=== PATIENT | female | born 1955 | race Caucasian/White ===

== ENCOUNTER → 2016-11-01 | Outpatient (CLI) | payer BC ==
[~2016-11-01] MED LIST: NAPR-201; ONDA4TAB10 SL; OXYC-57; PROM12.57 PO
--- NOTE | 2016-11-03 08:26 | MAMMOGRAPHY REPORT ---
BILATERAL DIGITAL SCREENING MAMMOGRAM TOMOSYNTHESIS WITH CAD: 11/01/2016 CLINICAL HISTORY: Routine screening. TECHNIQUE: Breast tomosynthesis in addition to standard 2D mammography was performed. Current study was also evaluated with a Computer Aided Detection (CAD) system. COMPARISON: Comparison is made to exam dated: 10/12/2007. BREAST COMPOSITION: The tissue of both breasts is extremely dense, which lowers the sensitivity of mammography. FINDINGS: There is an asymmetry in the lateral right breast for which additional targeted ultrasoun d and possible additional mammographic views are recommended. This is thought to project along the posterior nipple line on the MLO view. Additionally, there are possible clusters of microcalcificat ions in the upper outer quadrant of each breast, for which additional spot magnification views are r ecommended. No other suspicious mass, architectural distortion or cluster of microcalcifications is seen. IMPRESSION: ACR BI-RADS CATEGORY 0: INCOMPLETE EVALUATION: NEED ADDITIONAL IMAGING EVALUATION The asymmetry in the lateral right breast and possible bilateral microcalcifications need additional imaging evaluation. The patient will be called to schedule an appointment. Approximately 10% of breast cancers are not detected with mammography. A negative mammographic repor t should not delay biopsy if a clinically suggestive mass is present. Mi Sam M.D. ay/:11/02/2016 18:28:02 School Examiner: Long BARRON)(M), [facility] letter sent: Addl Imaging 0 BI-RADS Code: ACR BI-RADS Category 0: Incomplete Evaluation: Need Additional Imaging Evaluation
== END | disposition home or self-care (01) ==
LOC: C.MAMM 13:46
PROVIDERS: ATTEND Family Medicine
DX: Z12.31 Encounter for screening mammogram for malignant neoplasm of breast (principal); R92.8 Other abnormal and inconclusive findings on diagnostic imaging of breast

== ENCOUNTER → 2016-11-15 | Outpatient (CLI) | payer BC | END | disposition home or self-care (01) | LOC: C.MAMM 13:14 | PROVIDERS: ATTEND Family Medicine | DX: R63.4 Abnormal weight loss (principal); N95.1 Menopausal and female climacteric states; M85.851 Other specified disorders of bone density and structure, right thigh; M85.852 Other specified disorders of bone density and structure, left thigh; M85.88 Other specified disorders of bone density and structure, other site ==

== ENCOUNTER → 2016-11-17 | Outpatient (CLI) | payer BC ==
--- NOTE | 2016-11-17 14:54 | MAMMOGRAPHY REPORT ---
BILATERAL DIGITAL DIAGNOSTIC MAMMOGRAM AND TARGETED RIGHT ULTRASOUND: 11/17/2016 CLINICAL HISTORY: Callback from screening mammogram for bilateral calcifications and right breast as ymmetry. TECHNIQUE: Spot magnification bilateral CC and ML views were obtained. COMPARISON: Comparison is made to exams dated: 11/01/2016 mammogram - [facility] an d 10/12/2007. BREAST COMPOSITION: The tissue of both breasts is extremely dense, which lowers the sensitivity of mammography. FINDINGS: The patient reports a family history of breast cancer in her mother. The previously seen asymmetry in the right lateral breast on the cc view is less prominent on the spot magnification vie w, without a discrete mass or other suspicious finding noted on the additional views. Spot magnific ation views of the right breast demonstrate a 6 mm group of faint punctate calcifications in the rig ht upper outer quadrant, as well as a few other faint scattered punctate calcifications noted. Spot magnification views of the left breast demonstrate a small 3 mm cluster of faint punctate calcifica tions in the left upper outer quadrant. The calcifications were not clearly present on the 2007 exa m, however, it is difficult to make an accurate comparison due to differences in technique (the prio r mammogram was a screen film mammogram). The calcifications are probably benign and a short interv al follow-up is recommended to confirm stability. Targeted ultrasound was performed of the right lateral breast in the region of the mammographic asym metry. No suspicious masses or other suspicious sonographic abnormalities are evident. 2 adjacent anechoic circumscribed masses are seen within the right breast at 9:00, 2 cm from the nipple, one me asuring 4 x 5 mm and the other measuring 3 x 4 mm, consistent with benign cysts. Another anechoic b enign simple cyst measuring 5 mm is seen within the right breast at 9:00 periareolar region. IMPRESSION: ACR-BI-RADS CATEGORY 3: PROBABLY BENIGN, TARGETED ULTRASOUND ACR-BI-RADS CATEGORY 3: [place] OBABLY BENIGN 1. Grouped faint punctate calcifications in bilateral upper outer quadrants are probably benign. R ecommend follow-up diagnostic mammograms in 6 months to confirm stability on spot magnification view s. 2. Asymmetry seen within the right lateral breast is less prominent on the additional views, withou t corresponding suspicious sonographic abnormality evident. The asymmetry is probably benign and li evonne represents normal fibroglandular tissue. Recommend follow-up diagnostic tomosynthesis mammogra ms in 6 months to confirm stability. 3. Given the extremely dense breast parenchyma mammographically and given the family history of ela ast cancer, the patient may qualify for annual screening breast MRI in addition to mammography if he r lifetime risk is greater than 20-25%. The patient has been verbally notified of the results. Approximately 10% of breast cancers are not detected with mammography. A negative mammographic repor t should not delay biopsy if a clinically suggestive mass is present. Carri Meyer M.D. ah/:11/17/2016 12:17:33 Needle Molder: Shahida Crespo, [facility] letter sent: Follow Up Recommended 3 BI-RADS Code: ACR-BI-RADS Category 3: Probably Benign Ultrasound BI-RADS: ACR-BI-RADS Category 3: P robably Benign
== END | disposition home or self-care (01) ==
LOC: C.MAMM 09:06
PROVIDERS: ATTEND Family Medicine
DX: R92.0 Mammographic microcalcification found on diagnostic imaging of breast (principal); N64.89 Other specified disorders of breast

== ENCOUNTER 2017-04-06 16:50 | Emergency (ER) | payer BC ==
[~2017-04-06] VITALS: Ht 172.7 cm; Wt 58.6 kg
[~2017-04-06 16:50] MED LIST changes: -ONDA4TAB10 SL
[2017-04-06 16:58] VITALS: TEMP 36.4
[2017-04-06] MEDS ORDERED: SODIUM CHLORIDE 0.9% 1000ML 1,000 ML IV STA (17:26)
[2017-04-06] MEDS ORDERED: ONDANSETRON INJ 2 MG/ML 2 ML VIAL IV STA (17:29)
--- NOTE | 2017-04-06 17:29 | EMERGENCY ROOM VISIT NOTE ---
History Report prepared by Mustapha: Shey Centeno Under the Supervision of: Dr. Giovanni Bentley M.D. First contact with patient: 17:18 Chief Complaint: VOMITING Stated Complaint: VOMITING, DEHYDRATED, MEMORY LOSS Nursing Triage Summary: Patient reports n/v since 1500 today denies any diarrhea. Patient also denies any pain. States she took a five hour energy drink prior to the vomiting and per patient was confused. History of Present Illness The patient is a 61 year old female who presents to the Emergency Room with complaints of persistent vomiting starting 1500 today. The patient had taken caffeine tablets and a 5 Hour Energy in order to make a long drive to [place] today. 30 minutes later she called her and was confused. Her states that she could not remember what she had done earlier in the day. Around 1 hour later, she started becoming nauseous and vomiting. She has vomited 4 times. She is currently still nauseous. She denies having any abdominal pain. Her states that she continues to ask the same questions repeatedly. Source of History: patient, spouse/significant other Onset: 1500 today Position: other (global) Quality: other (vomiting) Timing: other (persistent) Associated Symptoms: + nausea, No abdominal pain Note: Pt is confused, memory loss. Review of Systems See HPI for pertinent positives & negatives. A total of 10 systems reviewed and were otherwise negative. Past Medical & Surgical Medical Problems: (1) No significant medical problems Family History No pertinent family history stated. Social History Smoking Status: Never Smoker Marital Status: Current/Historical Medications Scheduled Ondasetron Odt (Zofran Odt), 4 MG SL Q6H Allergies Coded Allergies: Quinine (Unverified Allergy, Mild, 04/06/17) Physical Exam Vital Signs Date Time Temp Pulse Resp B/P (MAP) Pulse Ox O2 Delivery O2 Flow Rate FiO2 04/06/17 20:07 68 16 101/71 99 04/06/17 19:21 67 112/68 100 Room Air 04/06/17 18:37 63 04/06/17 17:42 64 116/78 65 112/79 62 102/80 04/06/17 17:40 99 Room Air 04/06/17 16:58 36.4 69 20 100 Room Air Physical Exam GENERAL: Patient is a healthy-appearing well-nourished female HEAD: Normocephalic atraumatic EYES: Ocular movements intact pupils equal and react to light OROPHARYNX mucous membranes are moist no exudates present no erythema or edema present NECK: Supple no nuchal rigidity CHEST: Good equal expansion LUNGS: Clear and equal to auscultation CARDIAC: Normal S1 and S2 ABDOMEN: Soft nontender no guarding BACK: No CVA tenderness EXTREMITIES: No pain upon palpation normal muscle strength in all groups no clubbing cyanosis or edema NEURO: Patient is following commands and answering questions appropriately. Alert and oriented x3 Cranial Nerves 2-12 grossly intact Medical Decision & Procedures ER Provider Diagnostic Interpretation: X-ray results as stated below per interpretation by me and the radiologist. Radiology results as stated below per my review and radiologist interpretation: CHEST ONE VIEW PORTABLE HISTORY: 61 years-old Female Pt c/o AMS acute altered mental status with vomiting and dehydration COMPARISON: Chest radiograph 10/20/2009 TECHNIQUE: Portable upright AP view of the chest FINDINGS: 1.4 cm nodular density of the left lung base suggest nipple shadow. There is no pneumothorax, pleural effusion, focal airspace consolidation or overt pulmonary edema. Cardiac silhouette is within normal limits. There is atherosclerosis of the aorta. The bones appear to be grossly intact. IMPRESSION: No acute cardiopulmonary process. The above report was generated using voice recognition software. It may contain grammatical, syntax or spelling errors. Electronically signed by: Robinson Mauro M.D. 04/06/2017 6:31 PM Dictated Date/Time: 04/06/2017 6:30 PM HEAD WITHOUT CONTRAST (CT) CLINICAL HISTORY: 61 years-old Female with Pt c/o memory loss. Acute memory loss with altered mental status. TECHNIQUE: Multiple axial CT images of the head were obtained without contrast. A dose lowering technique was utilized adhering to the principles of ALARA. CT DOSE: 537.48 mGy.cm COMPARISON: None. FINDINGS: No acute intracranial hemorrhage, midline shift, mass, large territorial ischemia or abnormal extra-axial collection. The calvarium is intact. The paranasal sinuses, mastoid air cells, and middle ear cavities are clear. IMPRESSION: No acute intracranial abnormality. The above report was generated using voice recognition software. It may contain grammatical, syntax or spelling errors. Electronically signed by: Robinson Mauro M.D. 04/06/2017 6:33 PM Dictated Date/Time: 04/06/2017 6:31 PM Laboratory Results 04/06/17 17:15 Red Blood Count 4.94, Mean Corpuscular Volume 93.1, Mean Corpuscular Hemoglobin 30.4, Mean Corpuscular Hemoglobin Concent 32.6, Mean Platelet Volume 10.6, Neutrophils (%) (Auto) 80.5, Lymphocytes (%) (Auto) 16.4, Monocytes (%) (Auto) 1.9, Eosinophils (%) (Auto) 0.2, Basophils (%) (Auto) 0.8, Neutrophils # (Auto) 4.78, Lymphocytes # (Auto) 0.97, Monocytes # (Auto) 0.11, Eosinophils # (Auto) 0.01, Basophils # (Auto) 0.05 04/06/17 17:15 Test 04/06/17 17:15 04/06/17 19:45 White Blood Count 5.93 K/uL (4.8-10.8) Red Blood Count 4.94 M/uL (4.2-5.4) Hemoglobin 15.0 g/dL (12.0-16.0) Hematocrit 46.0 % (37-47) Mean Corpuscular Volume 93.1 fL (80-100) Mean Corpuscular Hemoglobin 30.4 pg (25-34) Mean Corpuscular Hemoglobin Concent 32.6 g/dl (32-36) Platelet Count 199 K/uL (130-400) Mean Platelet Volume 10.6 fL (7.4-10.4) Neutrophils (%) (Auto) 80.5 % Lymphocytes (%) (Auto) 16.4 % Monocytes (%) (Auto) 1.9 % Eosinophils (%) (Auto) 0.2 % Basophils (%) (Auto) 0.8 % Neutrophils # (Auto) 4.78 K/uL (1.4-6.5) Lymphocytes # (Auto) 0.97 K/uL (1.2-3.4) Monocytes # (Auto) 0.11 K/uL (0.11-0.59) Eosinophils # (Auto) 0.01 K/uL (0-0.5) Basophils # (Auto) 0.05 K/uL (0-0.2) RDW Standard Deviation 41.3 fL (36.4-46.3) RDW Coefficient of Variation 12.2 % (11.5-14.5) Immature Granulocyte % (Auto) 0.2 % Immature Granulocyte # (Auto) 0.01 K/uL (0.00-0.02) Anion Gap 13.0 mmol/L (3-11) Est Creatinine Clear Calc Drug Dose 62.9 ml/min Estimated GFR () 82.8 Estimated GFR (Non- 71.4 BUN/Creatinine Ratio 19.9 (10-20) Calcium Level 8.7 mg/dl (8.5-10.1) Total Bilirubin 0.6 mg/dl (0.2-1) Direct Bilirubin 0.2 mg/dl (0-0.2) Aspartate Amino Transf (AST/SGOT) 32 U/L (15-37) Alanine Aminotransferase (ALT/SGPT) 33 U/L (12-78) Alkaline Phosphatase 97 U/L (45-117) Total Creatine Kinase 104 U/L (26-192) Creatine Kinase MB 2.1 ng/ml (0.5-3.6) Creatine Kinase MB Ratio 2.0 (0-3.0) Troponin I < 0.015 ng/ml (0-0.045) Total Protein 7.5 gm/dl (6.4-8.2) Albumin 4.0 gm/dl (3.4-5.0) Thyroid Stimulating Hormone (TSH) 2.620 uIu/ml (0.300-4.500) Urine Color YELLOW Urine Appearance TURBID (CLEAR) Urine pH >= 9.0 (4.5-7.5) Urine Specific [place] 1.017 (1.000-1.030) Urine Protein NEG (NEG) Urine Glucose (UA) NEG (NEG) Urine Ketones 1+ (NEG) Urine Occult Blood NEG (NEG) Urine Nitrite NEG (NEG) Urine Bilirubin NEG (NEG) Urine Urobilinogen NEG (NEG) Urine Leukocyte Esterase NEG (NEG) Urine WBC (Auto) 1-5 /hpf (0-5) Urine RBC (Auto) 0-4 /hpf (0-4) Urine Hyaline Casts (Auto) 0 /lpf (0-5) Urine Epithelial Cells (Auto) 5-10 /lpf (0-5) Urine Bacteria (Auto) NEG (NEG) Labs reviewed by ED physician. Medications Administered Medications (Trade) Dose Ordered Sig/Emerson Route Start Time Stop Time Status Last Admin Dose Admin Sodium Chloride 1,000 ml @ 999 mls/hr Q1H1M STAT IV 04/06/17 17:26 04/06/17 18:26 DC 04/06/17 17:38 999 MLS/HR Ondansetron HCl (Zofran Inj) 4 mg NOW STAT IV 04/06/17 17:29 04/06/17 17:31 DC 04/06/17 17:37 4 MG Potassium Chloride (Tanesha Ciel Elix) 60 meq NOW STAT PO 04/06/17 18:00 04/06/17 18:01 DC 04/06/17 18:53 60 MEQ Ondansetron HCl (ZOFRAN ODT 4MG Home Pack) 1 homepack UD ONCE PO 04/06/17 19:45 04/06/17 19:46 DC 04/06/17 20:01 1 HOMEPACK ECG Indication: altered mental status Rate (beats per minute): 56 Rhythm: sinus bradycardia Findings: no acute ischemic change, no ectopy ED Course 172: Past medical records reviewed. The patient was evaluated in room B4B. A complete history and physical examination was performed. 1726: NSS 1000 ml @ 999 mls/hr IV. 1729: Zofran Inj 4 mg IV. 1800: Potassium Chloride 60 meq PO, Promethazine HCl 25 mg/Sodium Chloride 51 ml @ 204 mls/hr IV. 1935: I reevaluated the patient. She is resting comfortably. I discussed my findings with her and her . I strongly recommended that she stay for a stroke work up. She is refusing the stroke work up and states she would like to go home. She will be going home. 1944: Ondansetron HCl 1 homepack PO. Medical Decision Differential diagnosis: Etiologies such as metabolic, infection, hypo/hyperglycemia, electrolyte abnormalities, cardiac sources, intracerebral event, toxicologic, neurologic, as well as others were entertained. This is a 61-year-old female who presents emergency department complaining of gastroenteritis-like symptoms after taking caffeine pills in a 5 hour energy drink. Upon arrival to the emergency department there is concern that the patient is acutely confused and that she does not remember elements of today. serial abdominal examinations were performed on the patient in the emergency department and at no time did the patient exhibit a surgical abdomen. In addition the patient was sent for a CAT scan of the head which did not show any acute process. Based on these findings I was still concerned that the patient may have had a TIA based on the fact that she cannot remember elements from today and based on that I highly recommended that the patient be admitted to the hospital however both patient and her are refusing. She seems more alert and oriented at this point. I did recommend Zofran for vomiting at home. Medication Reconcilliation Current Medication List: was personally reviewed by me Blood Pressure Screening Patient's blood pressure: Normal blood pressure Blood pressure disposition: Did not require urgent referral Impression Primary Impression: Vomiting Scribe Attestation The scribe's documentation has been prepared under my direction and personally reviewed by me in its entirety. I confirm that the note above accurately reflects all work, treatment, procedures, and medical decision making performed by me. Departure Information Dispostion Other Prescriptions Ondasetron Odt (ZOFRAN ODT) 4 Mg Tab 4 MG SL Q6H for Nausea, #6 TAB Prov: Giovanni Bentley MD 04/06/17 Referrals Alta Bennett,D.OShannon (PCP) Forms HOME CARE DOCUMENTATION FORM, IMPORTANT VISIT INFORMATION Patient Instructions ED Diet Vomiting Diarrhea, My [facility], Nausea Vomit Control, Vomiting - [facility] Additional Instructions Need follow up with DR Bennett's office You have been examined and treated today on an emergency basis only. This is not a substitute for, or an effort to provide, complete comprehensive medical care. It is impossible to recognize and treat all injuries or illnesses in a single emergency department visit. It is therefore important that you follow up closely with Dr Bennett. Call as soon as possible for an appointment. Thank you for your time and consideration. I look forward to speaking with you again soon. Please don't hesitate to call us if you have any questions. Problem Qualifiers Primary Impression: Vomiting Vomiting type: unspecified Vomiting Intractability: unspecified Nausea presence: unspecified Qualified Codes: R11.10 - Vomiting, unspecified
[2017-04-06 17:36] LABS: BASO % 0.8 %; BASO ABS # 0.05 K/uL (0-0.2); COMPLETE YES; EOS % 0.2 %; IG% 0.2 %; LYMPH % 16.4 %; LYMPH ABS # 0.97 K/uL (1.2-3.4); MEAN CELL VOLUME 93.1 fL (80-100); MEAN CORPUSCULAR HEMOGLOBIN 30.4 pg (25-34); MEAN CORPUSCULAR HGB CONC 32.6 g/dl (32-36); MEAN PLATELET VOLUME 10.6 fL (7.4-10.4); MONO % 1.9 %; NEUT % 80.5 %; PLATELET COUNT 199 K/uL (130-400); RED BLOOD COUNT 4.94 M/uL (4.2-5.4); WHITE BLOOD COUNT 5.93 K/uL (4.8-10.8)
[2017-04-06 17:40] VITALS: O2SAT 99; Ht 172.7 cm; Wt 58.6 kg
[2017-04-06 17:55] LABS: ALT/SGPT 33 U/L (12-78); AST/SGOT 32 U/L (15-37); BLOOD UREA NITROGEN 18 mg/dl (7-18); BUN/CREATININE RATIO 19.9 (10-20); CALCIUM 8.7 mg/dl (8.5-10.1); CARBON DIOXIDE 22 mmol/L (21-32); CHLORIDE 106 mmol/L (98-107); CREATININE 0.88 mg/dl (0.60-1.20); GLUCOSE 150 mg/dl (70-99); POTASSIUM 3.1 mmol/L (3.5-5.1); SODIUM 141 mmol/L (136-145)
[2017-04-06] MEDS ORDERED: PROMETHAZINE HCL INJ 25 MG in SODIUM CHLORIDE 0.9% 50ML 50 ML IV STA (18:00)
[2017-04-06] MEDS ORDERED: POTASSIUM CHLORIDE 20 MEQ/15 ML UDC PO STA (18:00)
[2017-04-06 18:07] LABS: ALKALINE PHOSPHATASE 97 U/L (45-117)
--- NOTE | 2017-04-06 18:32 | DIAGNOSTIC IMAGING REPORT ---
CHEST ONE VIEW PORTABLE HISTORY: 61 years-old Female Pt c/o AMS acute altered mental status with vomiting and dehydration COMPARISON: Chest radiograph 10/20/2009 TECHNIQUE: Portable upright AP view of the chest FINDINGS: 1.4 cm nodular density of the left lung base suggest nipple shadow. There is no pneumothorax, pleural effusion, focal airspace consolidation or overt pulmonary edema. Cardiac silhouette is within normal limits. There is atherosclerosis of the aorta. The bones appear to be grossly intact. IMPRESSION: No acute cardiopulmonary process. The above report was generated using voice recognition software. It may contain grammatical, syntax or spelling errors. Electronically signed by: Robinson Mauro M.D. 04/06/2017 6:31 PM Dictated Date/Time: 04/06/2017 6:30 PM
--- NOTE | 2017-04-06 18:34 | DIAGNOSTIC IMAGING REPORT ---
HEAD WITHOUT CONTRAST (CT) CLINICAL HISTORY: 61 years-old Female with Pt c/o memory loss. Acute memory loss with altered mental status. TECHNIQUE: Multiple axial CT images of the head were obtained without contrast. A dose lowering technique was utilized adhering to the principles of ALARA. CT DOSE: 537.48 mGy.cm COMPARISON: None. FINDINGS: No acute intracranial hemorrhage, midline shift, mass, large territorial ischemia or abnormal extra-axial collection. The calvarium is intact. The paranasal sinuses, mastoid air cells, and middle ear cavities are clear. IMPRESSION: No acute intracranial abnormality. The above report was generated using voice recognition software. It may contain grammatical, syntax or spelling errors. Electronically signed by: Robinson Mauro M.D. 04/06/2017 6:33 PM Dictated Date/Time: 04/06/2017 6:31 PM
[2017-04-06] MEDS ORDERED: BENZTROPINE MESYLATE 1 MG/ML 2 ML AMP IM STA (18:45)
[2017-04-06] MEDS ORDERED: ONDA4TAB10 SL (19:43)
[2017-04-06] MEDS ORDERED: ONDANSETRON HOME PACK 4MG OD TAB PO ONE (19:45)
[2017-04-06 19:57] LABS: URINE APPEARANCE TURBID (CLEAR); URINE BILIRUBIN NEG (NEG); URINE COLOR YELLOW; URINE NITRITE NEG (NEG); URINE PH >= 9.0 (4.5-7.5); URINE SPECIFIC GRAVITY 1.017 (1.000-1.030); UROBILINOGEN NEG (NEG)
[2017-04-06 20:04] LABS: MANUAL MICROSCOPIC REQUIRED? NO; REVIEW REQ? NO
[2017-04-06 20:07] VITALS: BP 101/71; PULSE 68; O2SAT 99
== END 2017-04-06 20:08 | disposition home or self-care (01) ==
LOC: C.EDB 16:52
DX: R11.2 Nausea with vomiting, unspecified (principal)

== ENCOUNTER → 2017-05-17 | Outpatient (CLI) | payer BC ==
[~2017-05-17] MED LIST changes: -NAPR-201; +ONDA4TAB10 SL; -OXYC-57; -PROM12.57 PO
--- NOTE | 2017-05-17 15:11 | MAMMOGRAPHY REPORT ---
BILATERAL DIGITAL DIAGNOSTIC MAMMOGRAM TOMOSYNTHESIS WITH CAD: 05/17/2017 CLINICAL HISTORY: 61-year-old woman presents for follow-up in both breasts for bilateral microcalcifi cations and right lateral asymmetry. TECHNIQUE: Bilateral CC and MLO 2-D and tomosynthesis images, spot magnification CC and ML views of each breast were obtained. Current study was also evaluated with a Computer Aided Detection (CAD) sy stem. COMPARISON: Comparison is made to exams dated: 11/17/2016 ultrasound, 11/01/2016 mammogram - [facility], 10/12/2007, and 11/17/2016 mammogram - [facility]. BREAST COMPOSITION: There are scattered areas of fibroglandular density in both breasts. FINDINGS: The asymmetry previously observed in the lateral posterior right breast on the CC view is n o longer seen on the 2-D view and there is no corresponding or suspicious abnormality on the tomosynt hesis images in that area. This finding most likely represented normal overlapping fibroglandular ti ssue and is considered benign. No new suspicious masses, areas of architectural distortion or asymme tries are seen in the breast. Microcalcifications are again seen in each upper outer quadrant, for w hich evaluation of the spot magnification views was performed. Spot magnification views of the right upper outer quadrant demonstrate a very faint loose grouping of punctate microcalcifications which appear similar to this prior spot magnification views obtained on 11/17/2016. Views of the left upper outer quadrant demonstrate a small, 3.5 mm grouping of punctate microcalcifications in the upper outer posterior breast, which appears similar to the prior screen f ilm mammograms from 10/12/2007, based on MLO comparison and these are most likely benign. Given the slight increased conspicuity of both right and left microcalcifications, another short interval follo w-up bilateral diagnostic mammogram including spot magnification views is recommended in 6 months. IMPRESSION: ACR-BI-RADS CATEGORY 3: PROBABLY BENIGN 1. A right lateral posterior asymmetry is no longer seen on the 2-D or tomosynthesis views, confirmi ng benignity. This finding most likely represented normal overlapping fibroglandular tissue. 2. Very faint groupings of punctate microcalcifications are again noted in each upper outer quadrant , which are stable compared to prior spot magnification views obtained on 11/17/2016 and the left ela ast microcalcifications have likely been present dating back to 2007. Another short interval follow- up bilateral diagnostic mammogram including spot magnification views is recommended in 6 months to en sure longer stability. These results and recommendations were discussed with the patient at the time of the exam. Approximately 10% of breast cancers are not detected with mammography. A negative mammographic report should not delay biopsy if a clinically suggestive mass is present. Mi Sam M.D. ay/:05/17/2017 14:43:34 Drop Man: Cynthia SUE(Nigel)(Major), [facility] letter sent: Follow Up Recommended 3 BI-RADS Code: ACR-BI-RADS Category 3: Probably Benign
== END | disposition home or self-care (01) ==
LOC: C.MAMM 08:36
PROVIDERS: ATTEND Family Medicine
DX: R92.0 Mammographic microcalcification found on diagnostic imaging of breast (principal); N64.89 Other specified disorders of breast

== ENCOUNTER → 2017-11-16 | Outpatient (CLI) | payer OTHER ==
--- NOTE | 2017-11-16 15:25 | MAMMOGRAPHY REPORT ---
BILATERAL DIGITAL DIAGNOSTIC MAMMOGRAM TOMOSYNTHESIS WITH CAD: 11/16/2017 CLINICAL HISTORY: Short interval follow-up of bilateral breast calcifications. The patient reports n o new lumps or other complaints. TECHNIQUE: Breast tomosynthesis in addition to standard 2D mammography was performed. Current study was also evaluated with a Computer Aided Detection (CAD) system. Bilateral CC and MLO 2D and tomosyn thesis images and spot magnification bilateral CC and ML views were obtained. COMPARISON: Comparison is made to exams dated: 11/17/2016 ultrasound, 05/17/2017 mammogram, 11/17/2016 mammogram, 11/01/2016 mammogram - [facility], and 10/12/2007. BREAST COMPOSITION: There are scattered areas of fibroglandular density in both breasts. FINDINGS: Spot magnification views of the left breast again demonstrate a small faint 3 mm group of p unctate calcifications within the left upper outer quadrant. The calcifications are stable on spot m agnification views dating back to November 2016, and in retrospect may have been present on the MLO view f rom the 2007 exam although it is difficult to make accurate comparison due to technical differences. Spot magnification views of the right breast demonstrate loosely grouped faint punctate benign-appea ring calcifications in the right upper outer quadrant which are also stable dating back to the November 20 exam. The remainder of both breasts are stable compared to prior exams, without suspicious masses, calcific ations, or areas of architectural distortion noted. A few small circumscribed benign-appearing roverto s are again noted bilaterally, best seen on the tomosynthesis images, which are considered benign giv en the multiplicity and bilaterality and likely represent cysts. An asymmetry in the left subareolar breast on the MLO view effaces to a baseline appearance on the spot magnification view and has the a ppearance of normal fibroglandular tissue. IMPRESSION: ACR-BI-RADS CATEGORY 3: PROBABLY BENIGN Small 3 mm cluster of faint punctate calcifications in the left upper outer quadrant is stable dating back to the November 2016 and likely also the 2007 exam, and is probably benign. Loosely grouped benign- appearing calcifications in the right upper outer quadrant are also stable dating back to the November exam. Findings are probably benign, and recommend bilateral diagnostic tomosynthesis mammograms in 12 months to confirm 2 years of stability of the calcifications on spot magnification views. The patient has been verbally notified of the results. Approximately 10% of breast cancers are not detected with mammography. A negative mammographic report should not delay biopsy if a clinically suggestive mass is present. Carri Meyer M.D. ah/:11/16/2017 10:18:36 [employer]: Long BARRON)(Major), [facility] letter sent: Follow Up Recommended 3 BI-RADS Code: ACR-BI-RADS Category 3: Probably Benign
== END | disposition home or self-care (01) ==
LOC: C.MAMM 09:33
PROVIDERS: ATTEND Family Medicine
DX: R92.0 Mammographic microcalcification found on diagnostic imaging of breast (principal)